=== PATIENT | male | born 1995 | race Caucasian/White ===

== ENCOUNTER 2019-07-24 07:48 | Emergency (ER) | payer OTHER ==
[2019-07-24] MEDS: predniSONE 20 MG TAB PO (08:09)
[2019-07-24] MEDS: IPRATROPIUM (NEB) 0.5 MG/2.5 ML AMP NEB (08:20)
[2019-07-24] MEDS: LEVALBUTEROL (NEB) 1.25 MG/0.5 ML AMP INH (08:20)
== END 2019-07-24 08:54 | disposition home or self-care (01) ==
LOC: FTE 08:54
DX: J40 Bronchitis, not specified as acute or chronic (principal)
CPT/HCPCS: 71045; 94664; 99283-25